=== PATIENT | female | born 1965 | race Caucasian/White ===

== ENCOUNTER → 2020-09-09 | Outpatient (CLI) | payer BC, OTHER | LOC: KOH-I 08:00 | DX: R74.02 Elevation of levels of lactic acid dehydrogenase [LDH] (principal); K76.0 Fatty (change of) liver, not elsewhere classified | CPT/HCPCS: 76705 ==

== ENCOUNTER 2020-12-17 11:21 | Emergency (ER) | payer BC, OTHER ==
[2020-12-17 12:04] LABS: HEMOGLOBIN 14.7 gm/dl (12.3-15.3); RED BLOOD COUNT 4.65 M/UL (4.00-5.10); WHITE BLOOD COUNT 10.1 K/UL (4.5-11.0)
[2020-12-17 12:27] LABS: BUN/CREATININE RATIO 35 (0-10)
== END 2020-12-17 14:45 | disposition home or self-care (01) ==
LOC: ER1 11:21
PROVIDERS: Physician Assistant
DX: R07.89 Other chest pain (principal); I10 Essential (primary) hypertension
CPT/HCPCS: 71045; 80053; 82550; 82553; 83874; 84484; 85025; 93005; 96374; 99285; J1885

== ENCOUNTER → 2020-12-28 | Outpatient (CLI) | payer BC, OTHER | LOC: KOH-I 08:15 | DX: M15.8 Other polyosteoarthritis (principal); M25.512 Pain in left shoulder; M62.838 Other muscle spasm; M79.602 Pain in left arm; M43.12 Spondylolisthesis, cervical region; M48.00 Spinal stenosis, site unspecified; M47.812 Spondylosis without myelopathy or radiculopathy, cervical region; R93.7 Abnormal findings on diagnostic imaging of other parts of musculoskeletal system | CPT/HCPCS: 72050; 73030 ==

== ENCOUNTER → 2022-02-14 | Outpatient (CLI) | payer BC ==
[2022-02-14 09:18] LABS: HEMOGLOBIN 13.7 gm/dl (12.3-15.3); RED BLOOD COUNT 4.34 M/UL (4.00-5.10); WHITE BLOOD COUNT 7.6 K/UL (4.5-11.0)
[2022-02-14 09:54] LABS: BUN/CREATININE RATIO 25 (0-10)
[2022-02-15 15:11] LABS: CHOLESTEROL, TOTAL 234 mg/dL (100-199); HDL SIZE 8.5 nm (>=9.2); HDL-C 47 mg/dL (>39); HDL-P (TOTAL) 32.1 umol/L (>=30.5); LARGE VLDL-P 4.7 nmol/L (<=2.7); LDL SIZE 20.8 nm (>20.5); LDL SIZE 20.8 nm (>=20.8); LDL-C 163 mg/dL (0-99); LDL-P 2091 nmol/L (<1000); LP-IR SCORE 77 (<=45); SMALL LDL-P 1114 nmol/L (<=527); TRIGLYCERIDES 135 mg/dL (0-149); VLDL SIZE 49.4 nm (<=46.6)
== END ==
LOC: LAB 08:42
PROVIDERS: Emergency Medicine
DX: E78.2 Mixed hyperlipidemia (principal); I10 Essential (primary) hypertension; R73.09 Other abnormal glucose; R74.02 Elevation of levels of lactic acid dehydrogenase [LDH]
CPT/HCPCS: 36415; 80053; 80061; 83704; 85025